=== PATIENT | female | born 1975 | race Caucasian/White ===

== ENCOUNTER 2020-06-18 10:15 | Inpatient (IN) | payer OTHER ==
[~2020-06-18] VITALS: Ht 175.3 cm; Wt 77.1 kg
[2020-06-18] MEDS ORDERED: SYNTHROID50 MCG PO (14:15)
[2020-06-18] MEDS ORDERED: CARNITOR330 MG PO (14:15)
[2020-06-28] MEDS ORDERED: LEVOTHYROXINE50 MCG PO (12:36)
[2020-06-28] MEDS ORDERED: CODE1TAB37 PO (12:36)
[2020-06-28] MEDS ORDERED: IBUPROFEN400 MG PO (12:37)
== END 2020-06-28 12:58 | DRG 743 ==
LOC: O/R 06-25 05:45 → SURG-SUITE 06-25 05:45 → OB/GYN 06-25 10:00 → SURG-SUITE 06-25 12:45
PROVIDERS: ADMIT Obstetrics & Gynecology; ATTEND Obstetrics & Gynecology
PROC: 0UT70ZZ Resection of Bilateral Fallopian Tubes, Open Approach (ICD-10-PCS; 2020-06-25)
PROC: 0UT20ZZ Resection of Bilateral Ovaries, Open Approach (ICD-10-PCS; 2020-06-25)
PROC: 0TJB8ZZ Inspection of Bladder, Via Natural or Artificial Opening Endoscopic (ICD-10-PCS; 2020-06-25)
PROC: 0UT90ZZ Resection of Uterus, Open Approach (ICD-10-PCS; principal; 2020-06-25 10:00)
DX: D25.1 Intramural leiomyoma of uterus (principal); D25.2 Subserosal leiomyoma of uterus; N72 Inflammatory disease of cervix uteri; Z20.828 Contact with and (suspected) exposure to other viral communicable diseases; N83.11 Corpus luteum cyst of right ovary; N83.292 Other ovarian cyst, left side; N81.11 Cystocele, midline